=== PATIENT | female | born 1975 | race Caucasian/White ===

== ENCOUNTER 2023-09-10 16:43 | Emergency (ER) | payer OTHER ==
[2023-09-10 17:26] VITALS: RESP 20; TEMP 98.1; BMI 23.3
[2023-09-10 17:51] LABS: BASO % 0.9 % (0-2.0); EOS % 0.3 % (0-4.5); HEMATOCRIT 39.5 % (32.4-45.2); HEMOGLOBIN 13.5 GM/dL (10.7-15.3); LYMPH % 21.6 % (8-40); MCH 28.6 pg (25.7-33.7); MCHC 34.2 g/dl (32.0-36.0); MEAN CELL VOLUME 83.6 fl (80-96); MEAN PLT VOLUME 6.7 fl (7.5-11.1); MONO % 6.3 % (3.8-10.2); NEUT % 70.9 % (42.8-82.8); PLATELET COUNT 233 10^3/uL (134-434); RBC 4.73 M/mm3 (3.60-5.2); RDW 14.1 % (11.6-15.6); WHITE BLOOD COUNT 5.4 K/mm3 (4.0-10.0)
[2023-09-10] MEDS: SODIUM CHLORIDE 0.9% 500 ML INFUS.BAG IV ONE (17:59)
[2023-09-10 18:17] LABS: POTASSIUM 3.5 mmol/L (3.5-5.1)
[2023-09-10 18:19] LABS: ALBUMIN 3.8 g/dl (3.4-5.0); BLOOD UREA NITROGEN 6.4 mg/dL (7-18); CALCIUM 9.2 mg/dL (8.5-10.1)
[2023-09-10 18:21] LABS: MAGNESIUM 2.1 mg/dL (1.8-2.4)
[2023-09-10 18:22] LABS: CREATININE 0.6 mg/dL (0.55-1.3)
[2023-09-10 18:24] LABS: BILIRUBIN,TOTAL 0.3 mg/dL (0.2-1); TOT PROT 6.8 g/dl (6.4-8.2)
[2023-09-10 19:08] LABS: COCAINE, UR NEGATIVE (NEGATIVE); METHADONE, UR NEGATIVE (NEGATIVE); PHENCYCLIDINE,URINE NEGATIVE (NEGATIVE)
[2023-09-10 19:10] LABS: OPIATES, URI NEGATIVE (NEGATIVE); URINE AMPHETAMINES NEGATIVE (NEGATIVE); URINE BENZODIAZEPINES NEGATIVE (NEGATIVE)
[2023-09-10 19:14] LABS: URINE BARBITURATES POSITIVE (NEGATIVE)
[2023-09-10] MEDS: OXcarbazepine 150 MG TABLET (UD) PO ONE (21:34)
[2023-09-10 21:37] VITALS: BP 146/78; PULSE 96
== END 2023-09-10 21:44 | disposition home or self-care (01) ==
LOC: JER 16:43
DX: R56.9 Unspecified convulsions (principal); R51.9 Headache, unspecified; R11.0 Nausea
CPT/HCPCS: 36415; 70450-TC; 80053; 80307; 82962; 83605; 83735; 84100; 85025; 93005; 93010; 99285-25